=== PATIENT | female | born 1985 | race Caucasian/White ===

== ENCOUNTER → 2020-11-22 | Outpatient (CLI) | payer OTHER ==
[2020-11-22 11:57] LABS: Appearance,Urine Clear (Clear); Bilirubin,Urine Negative (Negative); Blood,Urine Negative (Negative); Color,Urine Colorless; Glucose,Urine (UA) Negative (Negative); Ketones,Urine Negative (Negative); Leukocyte Esterase,Urine Negative (Negative); Nitrite,Urine Negative (Negative); PH, Urine 6.5 (5.0-8.0); Protein,Urine Negative (Negative); Specific Gravity,Urine 1.003 (1.001-1.035); Urobilinogen,Urine <2.0 mg/dL (<2.0)
[2020-11-22 14:38] LABS: Basophils # (A) 0.04 X 10*3/uL (0.00-0.10); Basophils % (A) 0.6 %; Eosinophils # (A) 0.29 X 10*3/uL (0.04-0.35); Eosinophils % (A) 4.5 %; HCT 36.6 % (37.2-46.3); Lymphocytes # (A) 1.97 X 10*3/uL (0.90-5.00); Lymphocytes % (A) 30.7 %; MCH 28.7 pg (27.0-32.0); MCHC 32.8 g/dL (32.0-37.0); MCV 87.6 fL (80.0-97.0); Mean Platelet Volume 10.4 fL (9.5-12.2); Monocytes # (A) 0.41 X 10*3/uL (0.20-1.00); Monocytes % (A) 6.4 %; Neutrophils # (A) 3.68 X 10*3/uL (1.80-7.70); Neutrophils % (A) 57.5 %; Platelet Count 288 X 10*3/uL (140-440); RBC 4.18 X 10*6/uL (4.10-5.20); RDW 14.2 % (11.5-14.5); WBC 6.41 X 10*3/uL (4.50-10.00)
[2020-11-22 16:49] LABS: Albumin 4.1 g/dL (3.80-4.90); Albumin/Globulin Ratio 2.16 (1.60-3.17); Anion Gap 4.5 mmol/L (4.00-12.00); Carbon Dioxide 26.5 mmol/L (21.6-31.8); Globulin 1.9 g/dL (1.6-3.3); Non-African American GFR(CKD) 116.4 (60.0-200.0); Total Bilirubin 0.4 mg/dL (0.2-1.2)
== END | disposition home or self-care (01) ==
LOC: LABWHC1 09:48
PROVIDERS: ATTEND Family Medicine
DX: O09.90 Supervision of high risk pregnancy, unspecified, unspecified trimester (principal); F11.20 Opioid dependence, uncomplicated
CPT/HCPCS: 36415; 80053; 81003; 85025; 87340